=== PATIENT | female | born 1955 | race Caucasian/White ===

== ENCOUNTER 2018-02-03 08:29 | Day surgery (SDC) | payer OTHER ==
[~2018-02-03 08:29] MED LIST: CEFAZOLIN 1 GM INJ; CEFAZOLIN 2 GM/50 ML (PMX) 50 ML IVPB; ROCURONIUM 50 MG INJ; SOD CHLORIDE 0.9% 1,000 ML IV; SUCCINYLCHOLINE CHLORIDE 100 MG/5 ML SYG IV
[2018-02-03] MEDS ORDERED: ISOSULFAN BLUE 1% 5 ML INJ SC (14:47)
[2018-02-03] MEDS ORDERED: PROPOFOL 20 ML (14:59)
[2018-02-03] MEDS ORDERED: FENTAnyl 50 MCG/ML VIAL (14:59)
[2018-02-03] MEDS ORDERED: LIDOCAINE 100 MG SYRINGE (15:00)
[2018-02-03] MEDS ORDERED: ONDANSETRON 4 MG INJ (15:03)
[2018-02-03] MEDS ORDERED: DEXAMETHASONE 4 MG/ML 1 ML INJ (15:03)
[2018-02-03] MEDS: HYDROCODONE/APAP (7.5/325) TAB PO (17:52)
== END 2018-02-03 18:23 | disposition home or self-care (01) ==
LOC: SDS 08:29
DX: N60.12 Diffuse cystic mastopathy of left breast (principal); N60.22 Fibroadenosis of left breast
CPT/HCPCS: 19120; 71045; 88307; 93005